=== PATIENT | female | born 1940 | race Two or more races ===

== ENCOUNTER 2020-11-15 19:07 | Inpatient (IN) | payer MEDICARE ==
[~2020-11-15] VITALS: Ht 157.5 cm; Wt 53.6 kg
[2020-11-15 20:17] LABS: BASOPHILS % (AUTO) 0.6 % (0.0-2.0); EOSINOPHILS % (AUTO) 3.1 % (1.0-6.0); HEMATOCRIT 30.4 % (36-46); HEMOGLOBIN 9.2 g/dL (12.0-16.0); LYMPHOCYTES # (AUTO) 0.8 K/uL (1.0-4.8); LYMPHOCYTES % (AUTO) 8.3 % (22.0-44.0); MEAN CORPUSCULAR HEMOGLOBIN 27.6 pg (26.0-34.0); MEAN CORPUSCULAR HGB CONC 30.1 G/dL (31.0-37.0); MEAN CORPUSCULAR VOLUME 92 fL (80-100); MONOCYTES # (AUTO) 0.7 K/uL (0.1-1.0); MONOCYTES % (AUTO) 7.3 % (2.0-9.0); NEUTROPHILS # (AUTO) 7.4 K/uL (1.8-7.7); NEUTROPHILS % (AUTO) 80.7 % (40.0-70.0); PLATELET COUNT (AUTO) 174 K/uL (150-450); RED BLOOD CELL COUNT(AUTO) 3.32 MIL/uL (4.00-5.20); RED CELL DISTRIBUTION WIDTH 19.7 % (11.5-14.5)
[2020-11-15] MEDS ORDERED: BISA10SU11 PR (20:22)
[2020-11-15] MEDS ORDERED: HYDR50TA36 PO (20:22)
[2020-11-15] MEDS ORDERED: CLON0.2T PO (20:22)
[2020-11-15] MEDS ORDERED: PANT-31 PO (20:22)
[2020-11-15] MEDS ORDERED: LOSA50TA37 PO (20:22)
[2020-11-15] MEDS ORDERED: ESCI-8 PO (20:22)
[2020-11-15] MEDS ORDERED: INSU3INS3 SQ (20:22)
[2020-11-15] MEDS ORDERED: LEVO50 PO (20:22)
[2020-11-15] MEDS ORDERED: HYDR-4396 PO (20:22)
[2020-11-15] MEDS ORDERED: DONE5TAB5 PO (20:22)
[2020-11-15] MEDS ORDERED: CARV12 PO (20:22)
[2020-11-15] MEDS ORDERED: NIFE60TA85 PO (20:22)
[2020-11-15] MEDS ORDERED: PATI8.4P PO (20:22)
[2020-11-15] MEDS ORDERED: TRAZ-252 PO (20:22)
[2020-11-15] MEDS ORDERED: SENN8.6T90 PO (20:22)
[2020-11-15] MEDS ORDERED: POLY17PO47 PO (20:22)
[2020-11-15] MEDS ORDERED: LINA5TAB PO (20:22)
[2020-11-15] MEDS ORDERED: LUBI24CA2 PO (20:22)
[2020-11-15] MEDS ORDERED: ASPI-1450 PO (20:22)
[2020-11-15] MEDS ORDERED: MEMA10TA11 PO (20:22)
[2020-11-15 20:30] LABS: CALCIUM, TOTAL 7.9 mg/dL (8.8-10.5); CREATININE 3.88 mg/dL (0.60-1.30); POTASSIUM 3.6 mmol/L (3.5-5.1)
[2020-11-15 20:32] LABS: INR 1.2 (0.9-1.1); PROTHROMBIN TIME 12.5 SEC (9.4-11.6)
[2020-11-15 20:36] LABS: ALBUMIN 2.5 g/dL (3.4-5.0); BILIRUBIN,TOTAL 0.6 mg/dL (0.1-1.0); C-REACTIVE PROTEIN QUANT 10.16 mg/dL (0.00-0.30); TOTAL PROTEIN, SERUM 7.4 g/dL (6.4-8.2)
[2020-11-15 20:50] LABS: COVID AG,FIA SOURCE NASOPHARYNGEAL
[2020-11-15 21:28] LABS: ERYTHROCYTE SEDIMENTATION RATE 77 MM/HR (0-20)
[2020-11-15] MEDS ORDERED: 0.9% SODIUM CHLORIDE 10 ML SYRINGE IVP PRN (21:45)
[2020-11-15] MEDS ORDERED: ACETAMINOPHEN 325 MG TABLET PO PRN ×2 (21:45→22:15)
[2020-11-15] MEDS ORDERED: ONDANSETRON HCL 4 MG/2 ML VIAL IVP PRN ×2 (21:45→22:15)
[2020-11-15] MEDS ORDERED: ZOLPIDEM TARTRATE 5 MG TABLET PO PRN (22:15)
[2020-11-15] MEDS ORDERED: MAGNESIUM HYDROXIDE SUSPENSION 30 ML UDCUP PO PRN (22:15)
[2020-11-15] MEDS ORDERED: ALBUTEROL SULFATE 2.5 MG/0.5 ML NEB SOLUTION NEB PRN (22:15)
[2020-11-15] MEDS ORDERED: BISACODYL 10 MG RECTAL RECTAL SUPPOSITORY PR PRN ×2 (22:15)
[2020-11-15] MEDS ORDERED: IPRATROPIUM BROMIDE 0.5 MG/2.5 ML NEB SOLUTION NEB PRN (22:15)
[2020-11-15] MEDS ORDERED: MORPHINE SULFATE 2 MG/ML SYRINGE IVP PRN (22:15)
[2020-11-15 22:37] VITALS: BP 141/52
[2020-11-16] MEDS ORDERED: HEPARIN SODIUM,PORCINE 5,000 UNITS/ML VIAL SQ SCH
[2020-11-16 04:28] VITALS: BP 136/53
[2020-11-16] MEDS: LEVOTHYROXINE SODIUM 50 MCG TABLET PO SCH (06:28)
[2020-11-16 06:48] LABS: BASOPHILS % (AUTO) 0.6 % (0.0-2.0); EOSINOPHILS % (AUTO) 3.4 % (1.0-6.0); HEMOGLOBIN 9.1 g/dL (12.0-16.0); LYMPHOCYTES # (AUTO) 0.8 K/uL (1.0-4.8); LYMPHOCYTES % (AUTO) 8.8 % (22.0-44.0); MEAN CORPUSCULAR HEMOGLOBIN 27.6 pg (26.0-34.0); MEAN CORPUSCULAR HGB CONC 30.4 G/dL (31.0-37.0); MEAN CORPUSCULAR VOLUME 91 fL (80-100); MONOCYTES # (AUTO) 0.8 K/uL (0.1-1.0); MONOCYTES % (AUTO) 8.8 % (2.0-9.0); NEUTROPHILS # (AUTO) 7.5 K/uL (1.8-7.7); NEUTROPHILS % (AUTO) 78.4 % (40.0-70.0); PLATELET COUNT (AUTO) 175 K/uL (150-450)
[2020-11-16 07:08] LABS: ALBUMIN 2.5 g/dL (3.4-5.0); BILIRUBIN,TOTAL 0.5 mg/dL (0.1-1.0); CREATININE 4.69 mg/dL (0.60-1.30); POTASSIUM 3.9 mmol/L (3.5-5.1); TOTAL PROTEIN, SERUM 7.1 g/dL (6.4-8.2)
[2020-11-16 07:42] VITALS: BP 142/42
[2020-11-16] MEDS: CloNIDine HCL 0.2 MG TABLET PO SCH ×2 (08:45→20:10)
[2020-11-16] MEDS: HydrALAZINE HCL 50 MG TABLET PO SCH ×3 (08:45→20:09)
[2020-11-16] MEDS: LOSARTAN POTASSIUM 50 MG TABLET PO SCH (08:45)
[2020-11-16] MEDS: ASPIRIN 81 MG CHEWABLE TABLET PO SCH (08:45)
[2020-11-16] MEDS: PANTOPRAZOLE SODIUM 40 MG DR TABLET PO SCH ×2 (08:46→20:09)
[2020-11-16] MEDS: CARVEDILOL 12.5 MG TABLET PO SCH ×2 (08:46→20:10)
[2020-11-16] MEDS: LUBIPROSTONE 24 MCG CAPSULE PO SCH (08:47)
[2020-11-16] MEDS: LinaGLIPtin 5 MG TABLET PO SCH (08:47)
[2020-11-16] MEDS: MEMANTINE HCL 10 MG TABLET PO SCH (08:47)
[2020-11-16] MEDS: TraZODone HCL 50 MG TABLET PO SCH (08:48)
[2020-11-16] MEDS: ESCITALOPRAM OXALATE 10 MG TABLET PO SCH (08:48)
[2020-11-16] MEDS: DONEPEZIL HCL 5 MG TABLET PO SCH (08:48)
[2020-11-16] MEDS: POLYETHYLENE GLYCOL 3350 17 GM PACKET PO SCH (08:49)
[2020-11-16] MEDS ORDERED: LOSARTAN POTASSIUM 50 MG TABLET PO SCH (09:00)
[2020-11-16] MEDS ORDERED: HEPARIN SODIUM,PORCINE 5,000 UNITS/ML VIAL IVP ONE ×2 (09:45→11:00)
[2020-11-16] MEDS ORDERED: HEPARIN SODIUM,PORCINE 5,000 UNITS/ML VIAL IVP PRN ×3 (09:45)
[2020-11-16] MEDS ORDERED: HEPARIN SODIUM 25000 UNITS/D5W 250 ML IV PRN (09:45)
[2020-11-16 11:00] VITALS: BP 137/73
[2020-11-16] MEDS: HEPARIN SODIUM 25000 UNITS/D5W 250 ML IV PRN (12:12)
[2020-11-16 15:09] VITALS: BP 107/34
[2020-11-16 19:24] LABS: INR 1.2 (0.9-1.1); PROTHROMBIN TIME 12.3 SEC (9.4-11.6)
[2020-11-16 19:41] VITALS: BP 103/36
[2020-11-16 20:49] LABS: HEMATOCRIT 28.5 % (36-46); HEMOGLOBIN 8.7 g/dL (12.0-16.0)
[2020-11-16] MEDS ORDERED: SENNA 187 MG TABLET PO SCH (21:00)
[2020-11-16 23:57] VITALS: BP 111/42
[2020-11-17 03:19] LABS: HEMOGLOBIN 8.8 g/dL (12.0-16.0)
[2020-11-17 05:25] VITALS: BP 113/36
[2020-11-17] MEDS: LEVOTHYROXINE SODIUM 50 MCG TABLET PO SCH (06:05)
[2020-11-17 07:00] LABS: BASOPHILS % (AUTO) 0.4 % (0.0-2.0); HEMATOCRIT 28.5 % (36-46); HEMOGLOBIN 8.9 g/dL (12.0-16.0); LYMPHOCYTES # (AUTO) 0.9 K/uL (1.0-4.8); LYMPHOCYTES % (AUTO) 10.8 % (22.0-44.0); MEAN CORPUSCULAR HEMOGLOBIN 28.3 pg (26.0-34.0); MEAN CORPUSCULAR HGB CONC 31.1 G/dL (31.0-37.0); MEAN CORPUSCULAR VOLUME 91 fL (80-100); MONOCYTES # (AUTO) 0.8 K/uL (0.1-1.0); NEUTROPHILS # (AUTO) 6.3 K/uL (1.8-7.7); NEUTROPHILS % (AUTO) 75.8 % (40.0-70.0); PLATELET COUNT (AUTO) 165 K/uL (150-450); RED BLOOD CELL COUNT(AUTO) 3.13 MIL/uL (4.00-5.20); RED CELL DISTRIBUTION WIDTH 20.5 % (11.5-14.5)
[2020-11-17 07:17] VITALS: BP 110/43
[2020-11-17 07:25] LABS: MAGNESIUM 2.4 mg/dL (1.80-2.40); PHOSPHORUS 6.1 mg/dL (2.5-4.9)
[2020-11-17] MEDS: LinaGLIPtin 5 MG TABLET PO SCH (08:23)
[2020-11-17] MEDS: ASPIRIN 81 MG CHEWABLE TABLET PO SCH (08:24)
[2020-11-17] MEDS: PANTOPRAZOLE SODIUM 40 MG DR TABLET PO SCH ×2 (08:24→20:50)
[2020-11-17] MEDS: LUBIPROSTONE 24 MCG CAPSULE PO SCH (08:24)
[2020-11-17] MEDS: CARVEDILOL 12.5 MG TABLET PO SCH ×2 (08:24→20:50)
[2020-11-17] MEDS: DONEPEZIL HCL 5 MG TABLET PO SCH (08:24)
[2020-11-17] MEDS: ESCITALOPRAM OXALATE 10 MG TABLET PO SCH (08:25)
[2020-11-17] MEDS: POLYETHYLENE GLYCOL 3350 17 GM PACKET PO SCH (08:25)
[2020-11-17] MEDS: MEMANTINE HCL 10 MG TABLET PO SCH (08:25)
[2020-11-17] MEDS: TraZODone HCL 50 MG TABLET PO SCH (08:26)
[2020-11-17] MEDS: CloNIDine HCL 0.2 MG TABLET PO SCH ×2 (09:00→20:50)
[2020-11-17] MEDS: HydrALAZINE HCL 50 MG TABLET PO SCH (09:00)
[2020-11-17] MEDS: LOSARTAN POTASSIUM 50 MG TABLET PO SCH (09:00)
[2020-11-17 10:38] VITALS: BP 70/27
[2020-11-17 10:47] VITALS: BP 100/37
[2020-11-17] MEDS ORDERED: PIPERACILLIN/TAZO 3.375 GM/D5W 50 ML IV SCH (14:00)
[2020-11-17] MEDS: HEPARIN SODIUM 25000 UNITS/D5W 250 ML IV PRN (14:17)
[2020-11-17 14:33] VITALS: BP 112/44
[2020-11-17 14:48] LABS: HEMATOCRIT 27.9 % (36-46); HEMOGLOBIN 8.5 g/dL (12.0-16.0)
[2020-11-17 20:39] VITALS: BP 118/45
[2020-11-17] MEDS: PIPERACILLIN SODIUM/TAZOBACTAM 2.25 GM in DEXTROSE 5%-WATER 50 ML IV SCH (20:51)
[2020-11-17] MEDS ORDERED: SENNA 187 MG TABLET PO SCH (21:00)
[2020-11-17 21:05] LABS: HEMATOCRIT 27.9 % (36-46); HEMOGLOBIN 8.4 g/dL (12.0-16.0)
[2020-11-18] VITALS (12 sets, daily range): BP systolic 120–192; BP diastolic 43–104
[2020-11-18] MEDS: PIPERACILLIN SODIUM/TAZOBACTAM 2.25 GM in DEXTROSE 5%-WATER 50 ML IV SCH ×3 (05:55→21:47)
[2020-11-18] MEDS: LEVOTHYROXINE SODIUM 50 MCG TABLET PO SCH (06:30)
[2020-11-18 07:24] LABS: BASOPHILS % (AUTO) 0.3 % (0.0-2.0); EOSINOPHILS % (AUTO) 3.9 % (1.0-6.0); HEMATOCRIT 29.3 % (36-46); LYMPHOCYTES % (AUTO) 11.6 % (22.0-44.0); MEAN CORPUSCULAR HEMOGLOBIN 28.1 pg (26.0-34.0); MEAN CORPUSCULAR HGB CONC 30.7 G/dL (31.0-37.0); MEAN CORPUSCULAR VOLUME 92 fL (80-100); MONOCYTES # (AUTO) 0.9 K/uL (0.1-1.0); MONOCYTES % (AUTO) 9.8 % (2.0-9.0); NEUTROPHILS # (AUTO) 6.5 K/uL (1.8-7.7); NEUTROPHILS % (AUTO) 74.4 % (40.0-70.0); PLATELET COUNT (AUTO) 139 K/uL (150-450); RED CELL DISTRIBUTION WIDTH 20.7 % (11.5-14.5)
[2020-11-18 07:39] LABS: CALCIUM, TOTAL 8.3 mg/dL (8.8-10.5); CREATININE 7.41 mg/dL (0.60-1.30); POTASSIUM 4.6 mmol/L (3.5-5.1)
[2020-11-18] MEDS ORDERED: SODIUM BICARBONATE 50 MEQ/50 ML VIAL ONE (08:23)
[2020-11-18] MEDS ORDERED: HEPARIN SODIUM 1000 UNITS/NS 500 ML ONE ×2 (08:23→08:55)
[2020-11-18] MEDS ORDERED: IODIXANOL 320 MG/ML 150 ML VIAL ONE (08:23)
[2020-11-18] MEDS ORDERED: IODIXANOL 320 MG/ML 100 ML VIAL ONE (08:23)
[2020-11-18] MEDS ORDERED: IODIXANOL 320 MG/ML 50 ML VIAL ONE ×2 (08:23→10:33)
[2020-11-18] MEDS ORDERED: LIDOCAINE/PF 1% 30 ML VIAL ONE (08:23)
[2020-11-18] MEDS: ASPIRIN 81 MG CHEWABLE TABLET PO SCH ×2 (09:00→16:13)
[2020-11-18] MEDS: DONEPEZIL HCL 5 MG TABLET PO SCH (09:00)
[2020-11-18] MEDS: PANTOPRAZOLE SODIUM 40 MG DR TABLET PO SCH ×2 (09:00→20:16)
[2020-11-18] MEDS: CARVEDILOL 12.5 MG TABLET PO SCH ×3 (09:00→20:16)
[2020-11-18] MEDS: CloNIDine HCL 0.2 MG TABLET PO SCH ×2 (09:00→20:16)
[2020-11-18] MEDS: ESCITALOPRAM OXALATE 10 MG TABLET PO SCH (09:00)
[2020-11-18] MEDS ORDERED: FentaNYL CITRATE PF 100 MCG/2 ML VIAL ONE ×2 (09:08→10:07)
[2020-11-18] MEDS ORDERED: MIDAZOLAM HCL 2 MG/2 ML VIAL ONE (09:09)
[2020-11-18] MEDS ORDERED: NITROGLYCERIN 50 MG/D5% WATER 250 ML ONE (10:28)
[2020-11-18 16:46] LABS: HEMATOCRIT 28.5 % (36-46); HEMOGLOBIN 8.5 g/dL (12.0-16.0)
[2020-11-18] MEDS ORDERED: SODIUM CHLORIDE 0.9% 1,000 ML ONE (16:49)
[2020-11-18] MEDS: SEVELAMER CARBONATE 800 MG TABLET PO SCH (18:00)
[2020-11-18 18:18] LABS: CREATININE 5.15 mg/dL (0.60-1.30)
[2020-11-18] MEDS ORDERED: DiphenhydrAMINE HCL 50 MG/ML VIAL IVP PRN (19:00)
[2020-11-18] MEDS ORDERED: TraZODone HCL 50 MG TABLET PO SCH (21:00)
[2020-11-18 21:54] LABS: HEMOGLOBIN 8.3 g/dL (12.0-16.0)
[2020-11-18] MEDS: HYDROCODONE/ACETAMINOPHEN 5-325 MG TABLET PO PRN (21:56)
[2020-11-19] VITALS (7 sets, daily range): BP systolic 106–170; BP diastolic 45–77
[2020-11-19] MEDS: HEPARIN SODIUM 25000 UNITS/D5W 250 ML IV PRN (04:58)
[2020-11-19] MEDS: LEVOTHYROXINE SODIUM 50 MCG TABLET PO SCH (06:01)
[2020-11-19] MEDS: PIPERACILLIN SODIUM/TAZOBACTAM 2.25 GM in DEXTROSE 5%-WATER 50 ML IV SCH ×2 (06:01→13:44)
[2020-11-19 07:55] LABS: HEMATOCRIT 29.4 % (36-46); HEMOGLOBIN 8.7 g/dL (12.0-16.0)
[2020-11-19] MEDS: SEVELAMER CARBONATE 800 MG TABLET PO SCH ×3 (08:00→18:16)
[2020-11-19] MEDS ORDERED: SEVELAMER CARBONATE 800 MG TABLET PO SCH (08:00)
[2020-11-19] MEDS: RIVAROXABAN 10 MG TABLET PO SCH ×2 (09:00→20:14)
[2020-11-19] MEDS: CARVEDILOL 12.5 MG TABLET PO SCH ×3 (09:00→20:14)
[2020-11-19 11:34] LABS: HEMATOCRIT 28.5 % (36-46); HEMOGLOBIN 8.5 g/dL (12.0-16.0)
[2020-11-19] MEDS: ASPIRIN 81 MG CHEWABLE TABLET PO SCH (13:41)
[2020-11-19] MEDS: ESCITALOPRAM OXALATE 10 MG TABLET PO SCH (13:42)
[2020-11-19] MEDS: DONEPEZIL HCL 5 MG TABLET PO SCH (13:42)
[2020-11-19] MEDS: PANTOPRAZOLE SODIUM 40 MG DR TABLET PO SCH ×2 (13:42→20:14)
[2020-11-19] MEDS: CloNIDine HCL 0.2 MG TABLET PO SCH (13:43)
[2020-11-19 14:32] LABS: BASOPHILS % (AUTO) 0.7 % (0.0-2.0); EOSINOPHILS % (AUTO) 0.4 % (1.0-6.0); HEMATOCRIT 26.5 % (36-46); HEMOGLOBIN 7.9 g/dL (12.0-16.0); LYMPHOCYTES # (AUTO) 0.6 K/uL (1.0-4.8); LYMPHOCYTES % (AUTO) 5.1 % (22.0-44.0); MEAN CORPUSCULAR HEMOGLOBIN 27.5 pg (26.0-34.0); MEAN CORPUSCULAR VOLUME 92 fL (80-100); MONOCYTES # (AUTO) 0.7 K/uL (0.1-1.0); MONOCYTES % (AUTO) 6.7 % (2.0-9.0); NEUTROPHILS # (AUTO) 9.7 K/uL (1.8-7.7); PLATELET COUNT (AUTO) 122 K/uL (150-450); RED BLOOD CELL COUNT(AUTO) 2.89 MIL/uL (4.00-5.20)
[2020-11-19 14:34] LABS: NEUTROPHILS % (AUTO) 87.1 % (40.0-70.0)
[2020-11-19 14:52] LABS: CALCIUM, TOTAL 7.5 mg/dL (8.8-10.5); CREATININE 4.26 mg/dL (0.60-1.30); POTASSIUM 4.4 mmol/L (3.5-5.1)
[2020-11-19 14:58] LABS: ALBUMIN 2.3 g/dL (3.4-5.0); BILIRUBIN,TOTAL 0.5 mg/dL (0.1-1.0); TOTAL PROTEIN, SERUM 6.9 g/dL (6.4-8.2)
[2020-11-19] MEDS: DiphenhydrAMINE HCL 25 MG CAPSULE PO PRN (15:39)
[2020-11-19] MEDS: NIFEdipine 30 MG ER TABLET PO SCH (17:08)
[2020-11-19] MEDS: CloNIDine HCL 0.1 MG TABLET PO SCH (20:14)
[2020-11-19 23:06] LABS: HEMATOCRIT 26.8 % (36-46)
[2020-11-20] VITALS (7 sets, daily range): BP systolic 122–157; BP diastolic 43–67
[2020-11-20] MEDS: LEVOTHYROXINE SODIUM 50 MCG TABLET PO SCH (06:37)
[2020-11-20 08:05] LABS: BASOPHILS % (AUTO) 0.5 % (0.0-2.0); EOSINOPHILS % (AUTO) 2.9 % (1.0-6.0); HEMATOCRIT 26.7 % (36-46); HEMOGLOBIN 8.1 g/dL (12.0-16.0); LYMPHOCYTES # (AUTO) 0.8 K/uL (1.0-4.8); LYMPHOCYTES % (AUTO) 7.7 % (22.0-44.0); MEAN CORPUSCULAR HEMOGLOBIN 28.1 pg (26.0-34.0); MEAN CORPUSCULAR HGB CONC 30.5 G/dL (31.0-37.0); MEAN CORPUSCULAR VOLUME 92 fL (80-100); MONOCYTES % (AUTO) 9.6 % (2.0-9.0); NEUTROPHILS # (AUTO) 8.3 K/uL (1.8-7.7); NEUTROPHILS % (AUTO) 79.3 % (40.0-70.0); PLATELET COUNT (AUTO) 114 K/uL (150-450)
[2020-11-20 08:48] LABS: ALBUMIN 2.2 g/dL (3.4-5.0); BILIRUBIN,TOTAL 0.5 mg/dL (0.1-1.0); CALCIUM, TOTAL 7.4 mg/dL (8.8-10.5); CREATININE 5.37 mg/dL (0.60-1.30); MAGNESIUM 2.3 mg/dL (1.80-2.40); PHOSPHORUS 5.9 mg/dL (2.5-4.9); TOTAL PROTEIN, SERUM 6.8 g/dL (6.4-8.2)
[2020-11-20] MEDS: DONEPEZIL HCL 5 MG TABLET PO SCH (09:00)
[2020-11-20] MEDS: SEVELAMER CARBONATE 800 MG TABLET PO SCH ×3 (09:00→19:01)
[2020-11-20] MEDS: CARVEDILOL 12.5 MG TABLET PO SCH ×2 (09:01→20:21)
[2020-11-20] MEDS: NIFEdipine 30 MG ER TABLET PO SCH (09:01)
[2020-11-20] MEDS: RIVAROXABAN 10 MG TABLET PO SCH ×2 (09:01→20:20)
[2020-11-20] MEDS: PANTOPRAZOLE SODIUM 40 MG DR TABLET PO SCH ×2 (09:01→20:19)
[2020-11-20] MEDS: ASPIRIN 81 MG CHEWABLE TABLET PO SCH (09:01)
[2020-11-20] MEDS: CloNIDine HCL 0.1 MG TABLET PO SCH ×2 (09:01→20:20)
[2020-11-20] MEDS: EPOETIN ALFA 10,000 UNITS/ML 2 ML VIAL SQ SCH (09:02)
[2020-11-20] MEDS: ESCITALOPRAM OXALATE 10 MG TABLET PO SCH (09:03)
[2020-11-20] MEDS ORDERED: SODIUM CHLORIDE 0.9% 1,000 ML ONE (09:34)
[2020-11-20] MEDS ORDERED: KETAMINE HCL 50 MG/ML 10 ML VIAL IVP ONE (12:00)
[2020-11-20] MEDS ORDERED: MIDAZOLAM HCL 2 MG/2 ML VIAL IVP ONE (12:00)
[2020-11-20] MEDS ORDERED: FentaNYL CITRATE PF 100 MCG/2 ML VIAL IVP ONE (12:00)
[2020-11-20] MEDS: CHLORHEXIDINE GLUCONATE 4% 118 ML TOPICAL LIQUID TP SCH (16:14)
[2020-11-20] MEDS: DiphenhydrAMINE HCL 25 MG CAPSULE PO PRN (20:21)
[2020-11-21] VITALS (8 sets, daily range): BP systolic 129–169; BP diastolic 45–61
[2020-11-21] MEDS: LEVOTHYROXINE SODIUM 50 MCG TABLET PO SCH (06:08)
[2020-11-21 06:35] LABS: BASOPHILS % (AUTO) 0.2 % (0.0-2.0); HEMATOCRIT 28.9 % (36-46); HEMOGLOBIN 8.7 g/dL (12.0-16.0); LYMPHOCYTES # (AUTO) 0.6 K/uL (1.0-4.8); LYMPHOCYTES % (AUTO) 6.5 % (22.0-44.0); MEAN CORPUSCULAR HGB CONC 30.2 G/dL (31.0-37.0); MEAN CORPUSCULAR VOLUME 93 fL (80-100); NEUTROPHILS # (AUTO) 7.9 K/uL (1.8-7.7); NEUTROPHILS % (AUTO) 80.3 % (40.0-70.0); PLATELET COUNT (AUTO) 158 K/uL (150-450); RED BLOOD CELL COUNT(AUTO) 3.12 MIL/uL (4.00-5.20); RED CELL DISTRIBUTION WIDTH 21.5 % (11.5-14.5)
[2020-11-21 07:03] LABS: ALBUMIN 2.4 g/dL (3.4-5.0); BILIRUBIN,TOTAL 0.5 mg/dL (0.1-1.0); CALCIUM, TOTAL 8.3 mg/dL (8.8-10.5); CREATININE 3.2 mg/dL (0.60-1.30); POTASSIUM 4.1 mmol/L (3.5-5.1); TOTAL PROTEIN, SERUM 7.3 g/dL (6.4-8.2)
[2020-11-21] MEDS: DONEPEZIL HCL 5 MG TABLET PO SCH (08:20)
[2020-11-21] MEDS: SEVELAMER CARBONATE 800 MG TABLET PO SCH ×3 (08:20→18:08)
[2020-11-21] MEDS: RIVAROXABAN 10 MG TABLET PO SCH ×2 (08:21→19:46)
[2020-11-21] MEDS: ASPIRIN 81 MG CHEWABLE TABLET PO SCH (08:21)
[2020-11-21] MEDS: PANTOPRAZOLE SODIUM 40 MG DR TABLET PO SCH ×2 (08:21→19:46)
[2020-11-21] MEDS: ESCITALOPRAM OXALATE 10 MG TABLET PO SCH (08:21)
[2020-11-21] MEDS: CloNIDine HCL 0.1 MG TABLET PO SCH ×2 (09:00→19:46)
[2020-11-21] MEDS: NIFEdipine 30 MG ER TABLET PO SCH ×2 (09:00→23:25)
[2020-11-21] MEDS: CHLORHEXIDINE GLUCONATE 4% 118 ML TOPICAL LIQUID TP SCH (09:00)
[2020-11-21] MEDS: CARVEDILOL 12.5 MG TABLET PO SCH ×2 (09:00→19:46)
[2020-11-21 18:01] LABS: GLUCOMETER DEV NAME(LOC) 5S.2B; GLUCOSE,POINT OF CARE 333 MG/DL (70-110)
[2020-11-21] MEDS: DiphenhydrAMINE HCL 25 MG CAPSULE PO PRN (19:46)
[2020-11-22 04:08] VITALS: BP 145/56
[2020-11-22] MEDS: LEVOTHYROXINE SODIUM 50 MCG TABLET PO SCH (06:43)
[2020-11-22 07:24] VITALS: BP 128/42
[2020-11-22] MEDS: CHLORHEXIDINE GLUCONATE 4% 118 ML TOPICAL LIQUID TP SCH (09:00)
[2020-11-22] MEDS: SEVELAMER CARBONATE 800 MG TABLET PO SCH ×3 (09:12→18:14)
[2020-11-22] MEDS: PANTOPRAZOLE SODIUM 40 MG DR TABLET PO SCH ×2 (09:13→21:13)
[2020-11-22] MEDS: ASPIRIN 81 MG CHEWABLE TABLET PO SCH (09:13)
[2020-11-22] MEDS: ESCITALOPRAM OXALATE 10 MG TABLET PO SCH (09:13)
[2020-11-22] MEDS: RIVAROXABAN 10 MG TABLET PO SCH ×2 (09:14→21:13)
[2020-11-22] MEDS: DONEPEZIL HCL 5 MG TABLET PO SCH (09:14)
[2020-11-22 09:15] LABS: ALBUMIN 2.3 g/dL (3.4-5.0); BILIRUBIN,TOTAL 0.4 mg/dL (0.1-1.0); CALCIUM, TOTAL 8.1 mg/dL (8.8-10.5); CREATININE 4.87 mg/dL (0.60-1.30); POTASSIUM 4.5 mmol/L (3.5-5.1); TOTAL PROTEIN, SERUM 6.8 g/dL (6.4-8.2)
[2020-11-22] MEDS ORDERED: SODIUM CHLORIDE 0.9% 2,000 ML ONE (09:59)
[2020-11-22 11:29] VITALS: BP 116/52
[2020-11-22 14:30] VITALS: BP 132/86
[2020-11-22] MEDS: CloNIDine HCL 0.1 MG TABLET PO SCH ×2 (18:10→21:13)
[2020-11-22] MEDS: NIFEdipine 30 MG ER TABLET PO SCH (18:10)
[2020-11-22] MEDS: CARVEDILOL 12.5 MG TABLET PO SCH ×2 (18:11→21:00)
[2020-11-22] MEDS: EPOETIN ALFA 10,000 UNITS/ML 2 ML VIAL SQ SCH (18:12)
[2020-11-22 19:55] VITALS: BP 132/55
[2020-11-22] MEDS: DiphenhydrAMINE HCL 25 MG CAPSULE PO PRN (21:12)
[2020-11-23] VITALS (7 sets, daily range): BP systolic 113–140; BP diastolic 43–56
[2020-11-23] MEDS: LEVOTHYROXINE SODIUM 50 MCG TABLET PO SCH (05:58)
[2020-11-23 06:19] LABS: BASOPHILS % (AUTO) 0.4 % (0.0-2.0); EOSINOPHILS % (AUTO) 2.2 % (1.0-6.0); HEMATOCRIT 27.4 % (36-46); HEMOGLOBIN 8.6 g/dL (12.0-16.0); LYMPHOCYTES # (AUTO) 0.7 K/uL (1.0-4.8); MEAN CORPUSCULAR HEMOGLOBIN 28.3 pg (26.0-34.0); MEAN CORPUSCULAR HGB CONC 31.3 G/dL (31.0-37.0); MEAN CORPUSCULAR VOLUME 90 fL (80-100); MONOCYTES % (AUTO) 11.1 % (2.0-9.0); NEUTROPHILS % (AUTO) 78.3 % (40.0-70.0); PLATELET COUNT (AUTO) 143 K/uL (150-450); RED BLOOD CELL COUNT(AUTO) 3.03 MIL/uL (4.00-5.20); RED CELL DISTRIBUTION WIDTH 22.1 % (11.5-14.5)
[2020-11-23 06:30] LABS: ALBUMIN 2.3 g/dL (3.4-5.0); BILIRUBIN,TOTAL 0.4 mg/dL (0.1-1.0); CALCIUM, TOTAL 8.2 mg/dL (8.8-10.5); CREATININE 3.36 mg/dL (0.60-1.30); POTASSIUM 4.8 mmol/L (3.5-5.1); TOTAL PROTEIN, SERUM 7.3 g/dL (6.4-8.2)
[2020-11-23] MEDS: PANTOPRAZOLE SODIUM 40 MG DR TABLET PO SCH ×2 (08:38→20:21)
[2020-11-23] MEDS: NIFEdipine 30 MG ER TABLET PO SCH (08:38)
[2020-11-23] MEDS: CloNIDine HCL 0.1 MG TABLET PO SCH ×2 (08:39→20:32)
[2020-11-23] MEDS: CARVEDILOL 12.5 MG TABLET PO SCH ×2 (08:39→20:21)
[2020-11-23] MEDS: DONEPEZIL HCL 5 MG TABLET PO SCH (08:39)
[2020-11-23] MEDS: RIVAROXABAN 10 MG TABLET PO SCH ×2 (08:39→20:21)
[2020-11-23] MEDS: ASPIRIN 81 MG CHEWABLE TABLET PO SCH (08:39)
[2020-11-23] MEDS: SEVELAMER CARBONATE 800 MG TABLET PO SCH ×3 (08:39→17:29)
[2020-11-23] MEDS: ESCITALOPRAM OXALATE 10 MG TABLET PO SCH (08:39)
[2020-11-23] MEDS: CHLORHEXIDINE GLUCONATE 4% 118 ML TOPICAL LIQUID TP SCH (08:42)
[2020-11-23] MEDS: DiphenhydrAMINE HCL 25 MG CAPSULE PO PRN (20:20)
[2020-11-24] VITALS (9 sets, daily range): BP systolic 124–142; BP diastolic 46–65
[2020-11-24] MEDS: LEVOTHYROXINE SODIUM 50 MCG TABLET PO SCH (05:25)
[2020-11-24] MEDS ORDERED: SODIUM CHLORIDE 0.9% 1,000 ML ONE ×2 (06:38→07:11)
[2020-11-24] MEDS ORDERED: BUPIVACAINE HCL/PF 0.5% 30 ML VIAL ONE (06:46)
[2020-11-24] MEDS ORDERED: LIDOCAINE/PF 1% 30 ML VIAL ONE (06:46)
[2020-11-24] MEDS ORDERED: SODIUM CL IRRIG SOLN BAG 0 ML IRRIG ONE (06:58)
[2020-11-24] MEDS ORDERED: FentaNYL CITRATE PF 100 MCG/2 ML VIAL IVP PRN (07:00)
[2020-11-24] MEDS ORDERED: BACITRACIN 50,000 UNITS/VIAL ONE (07:00)
[2020-11-24] MEDS ORDERED: HYDROmorphone 2 MG/ML VIAL IVP PRN (07:00)
[2020-11-24] MEDS ORDERED: SODIUM CHLORIDE 0.9% 1,000 ML IV ONE (07:00)
[2020-11-24 08:21] LABS: BASOPHILS % (AUTO) 0.3 % (0.0-2.0); EOSINOPHILS % (AUTO) 2.3 % (1.0-6.0); HEMOGLOBIN 8.3 g/dL (12.0-16.0); LYMPHOCYTES # (AUTO) 0.6 K/uL (1.0-4.8); LYMPHOCYTES % (AUTO) 6.6 % (22.0-44.0); MEAN CORPUSCULAR HEMOGLOBIN 27.7 pg (26.0-34.0); MEAN CORPUSCULAR HGB CONC 30.7 G/dL (31.0-37.0); MEAN CORPUSCULAR VOLUME 90 fL (80-100); MONOCYTES % (AUTO) 10.6 % (2.0-9.0); NEUTROPHILS # (AUTO) 7.8 K/uL (1.8-7.7); NEUTROPHILS % (AUTO) 80.2 % (40.0-70.0); PLATELET COUNT (AUTO) 161 K/uL (150-450); RED BLOOD CELL COUNT(AUTO) 2.98 MIL/uL (4.00-5.20); RED CELL DISTRIBUTION WIDTH 21.8 % (11.5-14.5)
[2020-11-24 08:33] LABS: ALBUMIN 2.2 g/dL (3.4-5.0); BILIRUBIN,TOTAL 0.4 mg/dL (0.1-1.0); CALCIUM, TOTAL 7.8 mg/dL (8.8-10.5); CREATININE 5.01 mg/dL (0.60-1.30); POTASSIUM 4.3 mmol/L (3.5-5.1); TOTAL PROTEIN, SERUM 7.1 g/dL (6.4-8.2)
[2020-11-24] MEDS: NIFEdipine 30 MG ER TABLET PO SCH (09:41)
[2020-11-24] MEDS: PANTOPRAZOLE SODIUM 40 MG DR TABLET PO SCH ×2 (09:41→20:10)
[2020-11-24] MEDS: DONEPEZIL HCL 5 MG TABLET PO SCH (09:42)
[2020-11-24] MEDS: ASPIRIN 81 MG CHEWABLE TABLET PO SCH (09:42)
[2020-11-24] MEDS: CloNIDine HCL 0.1 MG TABLET PO SCH ×2 (09:42→20:09)
[2020-11-24] MEDS: ESCITALOPRAM OXALATE 10 MG TABLET PO SCH (09:42)
[2020-11-24] MEDS: SEVELAMER CARBONATE 800 MG TABLET PO SCH ×3 (09:42→18:12)
[2020-11-24] MEDS: CARVEDILOL 12.5 MG TABLET PO SCH ×2 (09:42→20:10)
[2020-11-24] MEDS: RIVAROXABAN 10 MG TABLET PO SCH ×2 (09:50→20:10)
[2020-11-24] MEDS: OXYGEN THERAPY IH SCH ×2 (10:18→20:10)
[2020-11-24] MEDS: CHLORHEXIDINE GLUCONATE 4% 118 ML TOPICAL LIQUID TP SCH (10:19)
[2020-11-24] MEDS ORDERED: 0.9% SODIUM CHLORIDE 10 ML VIAL IVP ONE (12:00)
[2020-11-24] MEDS ORDERED: PROPOFOL 1% 20 ML VIAL IVP ONE (12:00)
[2020-11-24] MEDS ORDERED: LIDOCAINE/PF 2% 5 ML VIAL IM ONE (12:00)
[2020-11-24] MEDS: DiphenhydrAMINE HCL 25 MG CAPSULE PO PRN (20:10)
[2020-11-25 00:35] VITALS: BP 139/51
[2020-11-25] MEDS: DiphenhydrAMINE HCL 25 MG CAPSULE PO PRN ×2 (02:00→17:23)
[2020-11-25 04:40] VITALS: BP 143/53
[2020-11-25] MEDS: LEVOTHYROXINE SODIUM 50 MCG TABLET PO SCH (04:52)
[2020-11-25] MEDS: HYDROCODONE/ACETAMINOPHEN 5-325 MG TABLET PO PRN (04:52)
[2020-11-25 06:36] LABS: ALBUMIN 2.2 g/dL (3.4-5.0); BILIRUBIN,TOTAL 0.4 mg/dL (0.1-1.0); CALCIUM, TOTAL 7.8 mg/dL (8.8-10.5); CREATININE 6.02 mg/dL (0.60-1.30); POTASSIUM 4.9 mmol/L (3.5-5.1)
[2020-11-25 09:08] VITALS: BP 155/62
[2020-11-25] MEDS: CloNIDine HCL 0.1 MG TABLET PO SCH ×2 (11:39→20:48)
[2020-11-25] MEDS: CARVEDILOL 12.5 MG TABLET PO SCH ×2 (11:39→20:48)
[2020-11-25] MEDS: PANTOPRAZOLE SODIUM 40 MG DR TABLET PO SCH ×2 (11:39→20:48)
[2020-11-25] MEDS: DONEPEZIL HCL 5 MG TABLET PO SCH (11:39)
[2020-11-25] MEDS: ESCITALOPRAM OXALATE 10 MG TABLET PO SCH (11:39)
[2020-11-25] MEDS: SEVELAMER CARBONATE 800 MG TABLET PO SCH ×3 (11:39→17:23)
[2020-11-25] MEDS: ASPIRIN 81 MG CHEWABLE TABLET PO SCH (11:39)
[2020-11-25] MEDS: CHLORHEXIDINE GLUCONATE 4% 118 ML TOPICAL LIQUID TP SCH (11:40)
[2020-11-25] MEDS: NIFEdipine 30 MG ER TABLET PO SCH (11:40)
[2020-11-25] MEDS: RIVAROXABAN 10 MG TABLET PO SCH ×2 (11:40→20:48)
[2020-11-25] MEDS: OXYGEN THERAPY IH SCH ×2 (11:41→20:48)
[2020-11-25] MEDS: EPOETIN ALFA 10,000 UNITS/ML 2 ML VIAL SQ SCH (11:43)
[2020-11-25 12:38] VITALS: BP 142/49
[2020-11-25 15:37] VITALS: BP 149/49
[2020-11-25 19:35] VITALS: BP 119/53
[2020-11-26 00:07] VITALS: BP 141/55
[2020-11-26] MEDS: DiphenhydrAMINE HCL 25 MG CAPSULE PO PRN (00:19)
[2020-11-26 04:09] VITALS: BP 122/51
[2020-11-26] MEDS: LEVOTHYROXINE SODIUM 50 MCG TABLET PO SCH (05:31)
[2020-11-26 07:46] VITALS: BP 124/48
[2020-11-26 08:13] LABS: BASOPHILS % (AUTO) 0.4 % (0.0-2.0); EOSINOPHILS % (AUTO) 1.9 % (1.0-6.0); HEMATOCRIT 27.3 % (36-46); HEMOGLOBIN 8.5 g/dL (12.0-16.0); LYMPHOCYTES # (AUTO) 0.6 K/uL (1.0-4.8); LYMPHOCYTES % (AUTO) 7.3 % (22.0-44.0); MEAN CORPUSCULAR HGB CONC 31.2 G/dL (31.0-37.0); MEAN CORPUSCULAR VOLUME 90 fL (80-100); MONOCYTES # (AUTO) 0.9 K/uL (0.1-1.0); MONOCYTES % (AUTO) 10.8 % (2.0-9.0); NEUTROPHILS # (AUTO) 6.3 K/uL (1.8-7.7); NEUTROPHILS % (AUTO) 79.6 % (40.0-70.0); PLATELET COUNT (AUTO) 180 K/uL (150-450); RED BLOOD CELL COUNT(AUTO) 3.04 MIL/uL (4.00-5.20); RED CELL DISTRIBUTION WIDTH 22.5 % (11.5-14.5)
[2020-11-26 08:37] LABS: ALBUMIN 2.3 g/dL (3.4-5.0); BILIRUBIN,TOTAL 0.4 mg/dL (0.1-1.0); CREATININE 3.92 mg/dL (0.60-1.30); POTASSIUM 4.3 mmol/L (3.5-5.1); TOTAL PROTEIN, SERUM 7.4 g/dL (6.4-8.2)
[2020-11-26] MEDS: RIVAROXABAN 10 MG TABLET PO SCH ×2 (08:45→21:27)
[2020-11-26] MEDS: CARVEDILOL 12.5 MG TABLET PO SCH ×2 (08:46→21:00)
[2020-11-26] MEDS: DONEPEZIL HCL 5 MG TABLET PO SCH (08:46)
[2020-11-26] MEDS: ESCITALOPRAM OXALATE 10 MG TABLET PO SCH (08:46)
[2020-11-26] MEDS: CloNIDine HCL 0.1 MG TABLET PO SCH ×2 (08:46→21:00)
[2020-11-26] MEDS: SEVELAMER CARBONATE 800 MG TABLET PO SCH ×3 (08:46→17:02)
[2020-11-26] MEDS: ASPIRIN 81 MG CHEWABLE TABLET PO SCH (08:47)
[2020-11-26] MEDS: PANTOPRAZOLE SODIUM 40 MG DR TABLET PO SCH ×2 (08:47→21:27)
[2020-11-26] MEDS: NIFEdipine 30 MG ER TABLET PO SCH (08:47)
[2020-11-26] MEDS: CHLORHEXIDINE GLUCONATE 4% 118 ML TOPICAL LIQUID TP SCH (08:47)
[2020-11-26] MEDS: OXYGEN THERAPY IH SCH ×2 (08:48→21:51)
[2020-11-26 11:36] VITALS: BP 94/94
[2020-11-26 15:13] VITALS: BP 96/35
[2020-11-26] MEDS ORDERED: LinaGLIPtin 5 MG TABLET PO ONE (16:15)
[2020-11-26] MEDS ORDERED: DEXTROSE 50%-WATER 25 GM/50 ML SYRINGE IVP PRN (16:15)
[2020-11-26 16:39] LABS: GLUCOMETER DEV NAME(LOC) 5N.1C; GLUCOSE,POINT OF CARE 347 MG/DL (70-110)
[2020-11-26] MEDS: INSULIN LISPRO 100 UNITS/ML SQ PRN (16:59)
[2020-11-26 19:35] VITALS: BP 100/40
[2020-11-26] MEDS: INSULIN GLARGINE,HUM.REC.ANLOG 100 UNITS/ML SQ SCH (21:31)
[2020-11-26 23:52] LABS: GLUCOMETER DEV NAME(LOC) 5N.1C; GLUCOSE,POINT OF CARE 254 MG/DL (70-110)
[2020-11-27] VITALS (7 sets, daily range): BP systolic 106–138; BP diastolic 44–61
[2020-11-27] MEDS: DiphenhydrAMINE HCL 25 MG CAPSULE PO PRN ×2 (04:10→17:20)
[2020-11-27] MEDS: LEVOTHYROXINE SODIUM 50 MCG TABLET PO SCH (05:59)
[2020-11-27 07:00] LABS: BASOPHILS % (AUTO) 0.4 % (0.0-2.0); EOSINOPHILS % (AUTO) 2.3 % (1.0-6.0); LYMPHOCYTES # (AUTO) 0.9 K/uL (1.0-4.8); LYMPHOCYTES % (AUTO) 9.9 % (22.0-44.0); MEAN CORPUSCULAR HEMOGLOBIN 27.9 pg (26.0-34.0); MEAN CORPUSCULAR HGB CONC 30.9 G/dL (31.0-37.0); MEAN CORPUSCULAR VOLUME 90 fL (80-100); MONOCYTES % (AUTO) 10.8 % (2.0-9.0); NEUTROPHILS # (AUTO) 6.8 K/uL (1.8-7.7); NEUTROPHILS % (AUTO) 76.6 % (40.0-70.0); PLATELET COUNT (AUTO) 182 K/uL (150-450); RED BLOOD CELL COUNT(AUTO) 2.87 MIL/uL (4.00-5.20); RED CELL DISTRIBUTION WIDTH 21.5 % (11.5-14.5)
[2020-11-27] MEDS: ESCITALOPRAM OXALATE 10 MG TABLET PO SCH (08:09)
[2020-11-27] MEDS: SEVELAMER CARBONATE 800 MG TABLET PO SCH ×3 (08:09→17:20)
[2020-11-27] MEDS: ASPIRIN 81 MG CHEWABLE TABLET PO SCH (08:09)
[2020-11-27] MEDS: DONEPEZIL HCL 5 MG TABLET PO SCH (08:09)
[2020-11-27] MEDS: OXYGEN THERAPY IH SCH ×2 (08:09→20:38)
[2020-11-27] MEDS: CARVEDILOL 12.5 MG TABLET PO SCH ×2 (08:09→20:35)
[2020-11-27] MEDS: CloNIDine HCL 0.1 MG TABLET PO SCH ×2 (08:09→20:35)
[2020-11-27] MEDS: NIFEdipine 30 MG ER TABLET PO SCH (08:10)
[2020-11-27] MEDS: CHLORHEXIDINE GLUCONATE 4% 118 ML TOPICAL LIQUID TP SCH (08:10)
[2020-11-27] MEDS: RIVAROXABAN 10 MG TABLET PO SCH ×2 (08:10→20:35)
[2020-11-27] MEDS: PANTOPRAZOLE SODIUM 40 MG DR TABLET PO SCH ×2 (08:10→20:35)
[2020-11-27] MEDS: EPOETIN ALFA 10,000 UNITS/ML 2 ML VIAL SQ SCH (08:12)
[2020-11-27 11:11] LABS: GLUCOSE,POINT OF CARE 151 MG/DL (70-110)
[2020-11-27 11:12] LABS: GLUCOMETER DEV NAME(LOC) 5N.1C; GLUCOSE,POINT OF CARE 138 MG/DL (70-110)
[2020-11-27 11:12] LABS: GLUCOMETER DEV NAME(LOC) 5N.1C
[2020-11-27 11:58] LABS: COVID AG,FIA SOURCE NASOPHARYNGEAL
[2020-11-27] MEDS: INSULIN LISPRO 100 UNITS/ML SQ PRN ×2 (12:27→17:21)
[2020-11-27 17:51] LABS: GLUCOMETER DEV NAME(LOC) 5N.1C; GLUCOSE,POINT OF CARE 162 MG/DL (70-110)
[2020-11-27 17:51] LABS: GLUCOMETER DEV NAME(LOC) 5N.1C; GLUCOSE,POINT OF CARE 198 MG/DL (70-110)
[2020-11-27] MEDS: HYDROCODONE/ACETAMINOPHEN 5-325 MG TABLET PO PRN (20:35)
[2020-11-27] MEDS: INSULIN GLARGINE,HUM.REC.ANLOG 100 UNITS/ML SQ SCH (20:40)
[2020-11-28 04:26] VITALS: BP 147/56
[2020-11-28] MEDS: LEVOTHYROXINE SODIUM 50 MCG TABLET PO SCH (06:22)
[2020-11-28] MEDS: INSULIN LISPRO 100 UNITS/ML SQ PRN ×3 (06:24→21:25)
[2020-11-28 07:44] VITALS: BP 131/46
[2020-11-28] MEDS: SEVELAMER CARBONATE 800 MG TABLET PO SCH ×3 (08:23→17:31)
[2020-11-28] MEDS: NIFEdipine 30 MG ER TABLET PO SCH (08:23)
[2020-11-28] MEDS: OXYGEN THERAPY IH SCH (08:23)
[2020-11-28] MEDS: ASPIRIN 81 MG CHEWABLE TABLET PO SCH (08:23)
[2020-11-28] MEDS: RIVAROXABAN 10 MG TABLET PO SCH (08:24)
[2020-11-28] MEDS: DONEPEZIL HCL 5 MG TABLET PO SCH (08:24)
[2020-11-28] MEDS: ESCITALOPRAM OXALATE 10 MG TABLET PO SCH (08:24)
[2020-11-28] MEDS: CARVEDILOL 12.5 MG TABLET PO SCH (08:24)
[2020-11-28] MEDS: PANTOPRAZOLE SODIUM 40 MG DR TABLET PO SCH ×2 (08:24→21:26)
[2020-11-28] MEDS: CloNIDine HCL 0.1 MG TABLET PO SCH (08:24)
[2020-11-28] MEDS: CHLORHEXIDINE GLUCONATE 4% 118 ML TOPICAL LIQUID TP SCH (08:26)
[2020-11-28] MEDS ORDERED: SODIUM CHLORIDE 0.9% 1,000 ML ONE (09:23)
[2020-11-28 10:41] LABS: BASOPHILS % (AUTO) 0.5 % (0.0-2.0); EOSINOPHILS % (AUTO) 2.1 % (1.0-6.0); HEMATOCRIT 22.9 % (36-46); HEMOGLOBIN 7.3 g/dL (12.0-16.0); LYMPHOCYTES # (AUTO) 0.6 K/uL (1.0-4.8); LYMPHOCYTES % (AUTO) 7.3 % (22.0-44.0); MEAN CORPUSCULAR HEMOGLOBIN 28.1 pg (26.0-34.0); MEAN CORPUSCULAR HGB CONC 31.6 G/dL (31.0-37.0); MEAN CORPUSCULAR VOLUME 89 fL (80-100); MONOCYTES # (AUTO) 0.6 K/uL (0.1-1.0); MONOCYTES % (AUTO) 7.2 % (2.0-9.0); NEUTROPHILS # (AUTO) 6.7 K/uL (1.8-7.7); NEUTROPHILS % (AUTO) 82.9 % (40.0-70.0); PLATELET COUNT (AUTO) 193 K/uL (150-450); RED BLOOD CELL COUNT(AUTO) 2.58 MIL/uL (4.00-5.20); RED CELL DISTRIBUTION WIDTH 21.8 % (11.5-14.5)
[2020-11-28] MEDS: HYDROCODONE/ACETAMINOPHEN 5-325 MG TABLET PO PRN (11:57)
[2020-11-28 11:58] LABS: GLUCOMETER DEV NAME(LOC) 5N.3; GLUCOSE,POINT OF CARE 105 MG/DL (70-110)
[2020-11-28 12:28] VITALS: BP 156/48
[2020-11-28 15:15] VITALS: BP 126/49
[2020-11-28] MEDS ORDERED: HEPARIN SODIUM 25000 UNITS/D5W 250 ML IV PRN (17:45)
[2020-11-28] MEDS ORDERED: HEPARIN SODIUM,PORCINE 5,000 UNITS/ML VIAL IVP PRN ×2 (17:45)
[2020-11-28] MEDS ORDERED: HEPARIN SODIUM,PORCINE 5,000 UNITS/ML VIAL IVP ONE (17:45)
[2020-11-28 18:22] LABS: BASOPHILS % (AUTO) 0.3 % (0.0-2.0); HEMOGLOBIN 7.7 g/dL (12.0-16.0); LYMPHOCYTES # (AUTO) 0.5 K/uL (1.0-4.8); LYMPHOCYTES % (AUTO) 6.5 % (22.0-44.0); MEAN CORPUSCULAR HEMOGLOBIN 27.5 pg (26.0-34.0); MEAN CORPUSCULAR HGB CONC 30.7 G/dL (31.0-37.0); MEAN CORPUSCULAR VOLUME 90 fL (80-100); MONOCYTES # (AUTO) 0.6 K/uL (0.1-1.0); MONOCYTES % (AUTO) 7.2 % (2.0-9.0); NEUTROPHILS # (AUTO) 6.5 K/uL (1.8-7.7); PLATELET COUNT (AUTO) 205 K/uL (150-450); RED BLOOD CELL COUNT(AUTO) 2.79 MIL/uL (4.00-5.20); RED CELL DISTRIBUTION WIDTH 21.3 % (11.5-14.5)
[2020-11-28 18:49] LABS: INR 1.3 (0.9-1.1); PROTHROMBIN TIME 13.8 SEC (9.4-11.6)
[2020-11-28 20:10] VITALS: BP 125/48
[2020-11-29 00:04] LABS: GLUCOMETER DEV NAME(LOC) 5N.1C; GLUCOSE,POINT OF CARE 177 MG/DL (70-110)
[2020-11-29 00:04] LABS: GLUCOMETER DEV NAME(LOC) 5N.1C; GLUCOSE,POINT OF CARE 183 MG/DL (70-110)
[2020-11-29 00:04] LABS: GLUCOMETER DEV NAME(LOC) 5S.2B; GLUCOSE,POINT OF CARE 180 MG/DL (70-110)
[2020-11-29 00:04] LABS: GLUCOMETER DEV NAME(LOC) 5N.1C; GLUCOSE,POINT OF CARE 162 MG/DL (70-110)
[2020-11-29] MEDS ORDERED: EPOETIN ALFA 10,000 UNITS/ML 2 ML VIAL SQ SCH (09:00)
== END 2020-11-28 22:00 | disposition short-term general hospital (02) | DRG 239 ==
LOC: EMS 19:12 → 5S 20:24 → 5N 21:09 → 5S 11-18 05:41
PROVIDERS: ADMIT Hospitalist; ATTEND Hospitalist
PROC: B41D1ZZ Fluoroscopy of Aorta and Bilateral Lower Extremity Arteries using Low Osmolar Contrast (ICD-10-PCS; principal; 2020-11-18)
PROC: 047K3Z1 Dilation of Right Femoral Artery using Drug-Coated Balloon, Percutaneous Approach (ICD-10-PCS; 2020-11-18)
PROC: 047M3Z1 Dilation of Right Popliteal Artery using Drug-Coated Balloon, Percutaneous Approach (ICD-10-PCS; 2020-11-18)
PROC: 047P3Z1 Dilation of Right Anterior Tibial Artery using Drug-Coated Balloon, Percutaneous Approach (ICD-10-PCS; 2020-11-18)
PROC: 047R3Z1 Dilation of Right Posterior Tibial Artery using Drug-Coated Balloon, Percutaneous Approach (ICD-10-PCS; 2020-11-18)
PROC: B41C1ZZ Fluoroscopy of Pelvic Arteries using Low Osmolar Contrast (ICD-10-PCS; 2020-11-18)
PROC: 5A1D70Z Performance of Urinary Filtration, Intermittent, Less than 6 Hours Per Day (ICD-10-PCS; 2020-11-18)
PROC: 047C3ZZ Dilation of Right Common Iliac Artery, Percutaneous Approach (ICD-10-PCS; 2020-11-18)
PROC: 5A1D70Z Performance of Urinary Filtration, Intermittent, Less than 6 Hours Per Day (ICD-10-PCS; 2020-11-20)
PROC: 5A1D70Z Performance of Urinary Filtration, Intermittent, Less than 6 Hours Per Day (ICD-10-PCS; 2020-11-22)
PROC: 0Y6M0Z7 Detachment at Right Foot, Complete 4th Ray, Open Approach (ICD-10-PCS; 2020-11-24)
PROC: 5A1D70Z Performance of Urinary Filtration, Intermittent, Less than 6 Hours Per Day (ICD-10-PCS; 2020-11-25)
PROC: 5A1D70Z Performance of Urinary Filtration, Intermittent, Less than 6 Hours Per Day (ICD-10-PCS; 2020-11-28)
DX: E11.52 Type 2 diabetes mellitus with diabetic peripheral angiopathy with gangrene (principal); N18.6 End stage renal disease; I70.261 Atherosclerosis of native arteries of extremities with gangrene, right leg; I13.2 Hypertensive heart and chronic kidney disease with heart failure and with stage 5 chronic kidney disease, or end stage renal disease; L97.819 Non-pressure chronic ulcer of other part of right lower leg with unspecified severity; E11.628 Type 2 diabetes mellitus with other skin complications; F32.9 Major depressive disorder, single episode, unspecified; E11.22 Type 2 diabetes mellitus with diabetic chronic kidney disease; E03.9 Hypothyroidism, unspecified; I44.7 Left bundle-branch block, unspecified; D63.1 Anemia in chronic kidney disease; F03.90 Unspecified dementia, unspecified severity, without behavioral disturbance, psychotic disturbance, mood disturbance, and anxiety; I25.10 Atherosclerotic heart disease of native coronary artery without angina pectoris; R09.02 Hypoxemia; Z20.822 Contact with and (suspected) exposure to COVID-19; S90.929A Unspecified superficial injury of unspecified foot, initial encounter; X58.XXXA Exposure to other specified factors, initial encounter; Y93.89 Activity, other specified; Z85.41 Personal history of malignant neoplasm of cervix uteri; Z85.42 Personal history of malignant neoplasm of other parts of uterus; Z99.2 Dependence on renal dialysis; Z90.710 Acquired absence of both cervix and uterus; Z89.429 Acquired absence of other toe(s), unspecified side; Y92.89 Other specified places as the place of occurrence of the external cause; Y99.8 Other external cause status
CPT/HCPCS: 36200; 71045; 75630; 75716; 75962; 76705; 80048; 80053; 82271; 82550; 82565; 82962; 83735; 83880; 84100; 84484; 84520; 85014; 85018; 85025; 85610; 85651; 85730; 86140; 87040; 87070; 87077; 87081; 87186; 87340; 88305; 88311; 93005; 93880; 93925; 93926; 99285; G0378; J0885; J1644; J1815; J2250; J2270; J2543; J2704; J3010; J3490; J7030; J7060; Q9967; 36415-L1; 36415-TC; C1725; U0003; Z7610